=== PATIENT | male | born 1965 | race Caucasian/White ===

== ENCOUNTER 2018-06-29 11:42 | Emergency (ER) | payer MEDICAID ==
[~2018-06-29] VITALS: Ht 175.3 cm; Wt 93.2 kg
[~2018-06-29 11:42] MED LIST: CYCL-1 PO; HYDR-4353 PO; IBUP-1984 PO; OMEP40CA37 PO
[2018-06-29 11:49] VITALS: BP 132/82
[2018-06-29] MEDS ORDERED: CEPH500C5 PO (12:39)
== END 2018-06-29 13:10 | disposition home or self-care (01) ==
LOC: ER 11:43
DX: S60.454A Superficial foreign body of right ring finger, initial encounter (principal); K21.9 Gastro-esophageal reflux disease without esophagitis; G89.29 Other chronic pain; F12.90 Cannabis use, unspecified, uncomplicated; Z88.6 Allergy status to analgesic agent; Z79.2 Long term (current) use of antibiotics; Z79.899 Other long term (current) drug therapy; W45.8XXA Other foreign body or object entering through skin, initial encounter; Y93.89 Activity, other specified; Y92.89 Other specified places as the place of occurrence of the external cause; Y99.8 Other external cause status
CPT/HCPCS: 73140; 99284

== ENCOUNTER 2018-10-23 20:29 | Emergency (ER) | payer MEDICAID ==
[~2018-10-23] VITALS: Ht 175.3 cm; Wt 80.0 kg
[~2018-10-23 20:29] MED LIST changes: +CEPH500C5 PO
[2018-10-23 20:37] VITALS: BP 113/83
[2018-10-23] MEDS ORDERED: ACET-3067 PO (22:17)
[2018-10-23] MEDS ORDERED: acetaminophen w/codeine (30MG) #3 tablet PO ONE (22:20)
== END 2018-10-23 22:29 | disposition home or self-care (01) ==
LOC: ER 20:30
DX: S60.222A Contusion of left hand, initial encounter (principal); K21.9 Gastro-esophageal reflux disease without esophagitis; G89.29 Other chronic pain; F12.90 Cannabis use, unspecified, uncomplicated; Z88.6 Allergy status to analgesic agent; W20.8XXA Other cause of strike by thrown, projected or falling object, initial encounter; Y93.89 Activity, other specified; Y92.89 Other specified places as the place of occurrence of the external cause; Y99.8 Other external cause status
CPT/HCPCS: 73130; 99283

== ENCOUNTER 2020-09-07 15:41 | Inpatient (IN) | payer MEDICAID ==
[~2020-09-07] VITALS: Ht 177.8 cm; Wt 97.7 kg
[~2020-09-07 15:41] MED LIST changes: -CEPH500C5 PO; +OMEP40CA13 PO; -OMEP40CA37 PO
[2020-09-07 16:38] LABS: BASOPHILS # (AUTO) 0.1 X10'3 (0-0.2); BASOPHILS % (AUTO) 0.5 % (0-1); EOSINOPHILS # (AUTO) 0.2 X10'3 (0-0.9); EOSINOPHILS % (AUTO) 1.5 % (0-6); HEMATOCRIT 45.5 % (42.0-52.0); HEMOGLOBIN 15.3 g/dl (14.0-17.9); LYMPHOCYTES # (AUTO) 3.4 X10'3 (1.1-4.8); LYMPHOCYTES % (AUTO) 27.4 % (21-51); MEAN CORPUSCULAR HEMOGLOBIN 31.2 PG (27.0-31.0); MEAN CORPUSCULAR HGB CONC 33.7 g/dL (33.0-36.5); MEAN CORPUSCULAR VOLUME 92.7 FL (78-98); MONOCYTES # (AUTO) 0.9 X10'3 (0-0.9); MONOCYTES % (AUTO) 7.6 % (2-12); NEUTROPHILS # (AUTO) 7.7 X10'3 (1.8-7.7); PLATELET COUNT 240 X10'3 (140-440); RED BLOOD COUNT 4.91 X10'6 (4.70-6.10); RED CELL DISTRIBUTION WIDTH 13.2 % (11.5-14.5); WHITE BLOOD COUNT 12.3 X10'3 (4.5-11.0)
[2020-09-07 16:38] LABS: CLARITY,URINE CLEAR (Clear); COLOR,URINE YELLOW (Yellow); GLUCOSE, URINE NEGATIVE (Neg); KETONES,URINE 15 mg/dl (Neg); LEUKOCYTE ESTERASE ,URINE NEGATIVE (Neg); NITRITES, URINE NEGATIVE (Neg); OCCULT BLOOD,URINE NEGATIVE (Neg); PH,URINE 5.5 (4.8-8.0); PROTEIN,URINE NEGATIVE (Neg); UROBILINOGEN,URINE 0.2 E.U/dL (0.2-1.0)
[2020-09-07 16:40] LABS: UA COLLECTION TYPE NON-SPECIFIED
[2020-09-07 17:09] LABS: ALANINE AMINOTRANSFERASE 34 U/L (12-78); ALBUMIN 4.1 G/DL (3.4-5.0); ALBUMIN/GLOBULIN RATIO 1.1 (1.1-1.5); ALKALINE PHOSPHATASE 92 IU/L (46-116); ANION GAP 9 (8-16); ASPARTATE AMINO TRANSFERASE 18 U/L (10-37); BILIRUBIN,TOTAL 0.8 MG/DL (0.1-1.0); BLOOD UREA NITROGEN 11 MG/DL (7-18); BUN/CREATININE RATIO 12.2 (5.4-32.0); CALCIUM 9.9 MG/DL (8.5-10.1); CHLORIDE 104 MMOL/L (99-107); GLUCOSE 88 MG/DL (70-104); POTASSIUM 4.2 MMOL/L (3.5-5.1); SODIUM 140 MMOL/L (135-145); TOTAL CARBON DIOXIDE 26.6 MMOL/L (24-32); TOTAL PROTEIN 7.8 G/DL (6.4-8.2); eGFR 88 ML/MIN
[2020-09-07 17:17] LABS: LIPASE 1409 U/L (73-393)
--- NOTE | 2020-09-07 17:43 | NUR ---
updated primary rn elif
[2020-09-07] MEDS ORDERED: ondansetron/PF 4mg/2ml inj IV ONE (17:50)
[2020-09-07] MEDS ORDERED: normal saline 1000ML IV soln IVB ONE (17:50)
[2020-09-07] MEDS: morphine 4 MG/ML inj SYRINge IV PRN ×2 (17:59→18:47)
[2020-09-07] MEDS ORDERED: piperacillin/tazo 3.375gm/50ml 50 ML IV ONE (19:45)
[2020-09-07 20:04] LABS: C-REACTIVE PROTEIN 5.69 MG/DL (0.0-0.5)
[2020-09-07] MEDS ORDERED: morphine 2 MG/ML inj. syringe IV PRN (20:35)
[2020-09-07] MEDS ORDERED: potassium Cl 40MEQ/1/2NS 520ml 520 ML IV PRN ×2 (20:35)
[2020-09-07] MEDS ORDERED: mag hydrox/Alum hydrox/simeth 30ml oral suspension PO PRN (20:35)
[2020-09-07] MEDS ORDERED: IBUP-1985 PO (20:41)
[2020-09-07] MEDS: normal saline 1000ml 1,000 ML IV SCH (20:56)
[2020-09-07] MEDS: morphine 2 MG/ML inj. syringe IV PRN ×2 (21:28→23:21)
[2020-09-07] MEDS ORDERED: pantoprazole 40 MG vial IV ONE (21:40)
[2020-09-07 22:00] VITALS: BP 123/77
[2020-09-08] VITALS (18 sets, daily range): BP systolic 102–132; BP diastolic 57–85
[2020-09-08] MEDS: piperacillin/tazo 3.375gm/50ml 50 ML IV SCH ×3 (00:16→15:13)
[2020-09-08] MEDS: morphine 2 MG/ML inj. syringe IV PRN ×11 (01:27→23:49)
[2020-09-08] MEDS: ondansetron/PF 4mg/2ml inj IV PRN (05:26)
--- NOTE | 2020-09-08 06:03 | NUR ---
Problems reprioritized. Patient report given, questions answered & plan of care reviewed with MOY Bird.
--- NOTE | 2020-09-08 06:20 | NUR ---
Patient in room [facility]. I have received report from MOY Argueta and had the opportunity to ask questions and assume patient care.
[2020-09-08 06:22] LABS: BASOPHILS % (AUTO) 0.4 % (0-1); EOSINOPHILS # (AUTO) 0.2 X10'3 (0-0.9); EOSINOPHILS % (AUTO) 2.6 % (0-6); HEMATOCRIT 41.2 % (42.0-52.0); HEMOGLOBIN 14.1 g/dl (14.0-17.9); LYMPHOCYTES # (AUTO) 2.9 X10'3 (1.1-4.8); LYMPHOCYTES % (AUTO) 35.1 % (21-51); MEAN CORPUSCULAR HEMOGLOBIN 31.3 PG (27.0-31.0); MEAN CORPUSCULAR HGB CONC 34.2 g/dL (33.0-36.5); MEAN CORPUSCULAR VOLUME 91.7 FL (78-98); MEAN PLATELET VOLUME 8.3 FL (7.4-10.4); MONOCYTES # (AUTO) 0.6 X10'3 (0-0.9); MONOCYTES % (AUTO) 7.5 % (2-12); NEUTROPHILS # (AUTO) 4.4 X10'3 (1.8-7.7); NEUTROPHILS % (AUTO) 54.4 % (42-75); PLATELET COUNT 221 X10'3 (140-440); RED BLOOD COUNT 4.49 X10'6 (4.70-6.10); RED CELL DISTRIBUTION WIDTH 12.8 % (11.5-14.5); WHITE BLOOD COUNT 8.1 X10'3 (4.5-11.0)
[2020-09-08 06:36] LABS: ALANINE AMINOTRANSFERASE 31 U/L (12-78); ALBUMIN 3.4 G/DL (3.4-5.0); ALBUMIN/GLOBULIN RATIO 1.1 (1.1-1.5); ALKALINE PHOSPHATASE 78 IU/L (46-116); ANION GAP 7 (8-16); ASPARTATE AMINO TRANSFERASE 16 U/L (10-37); BILIRUBIN,TOTAL 0.9 MG/DL (0.1-1.0); BLOOD UREA NITROGEN 13 MG/DL (7-18); CALCIUM 8.6 MG/DL (8.5-10.1); CHLORIDE 106 MMOL/L (99-107); GLUCOSE 81 MG/DL (70-104); LIPASE 475 U/L (73-393); POTASSIUM 3.8 MMOL/L (3.5-5.1); SODIUM 141 MMOL/L (135-145); TOTAL CARBON DIOXIDE 28.3 MMOL/L (24-32); TOTAL PROTEIN 6.6 G/DL (6.4-8.2); TRIGLYCERIDES 68 MG/DL (20-135); eGFR 78 ML/MIN
[2020-09-08] MEDS ORDERED: BUPIVAcaine/PF 2.5mg/ml (0.25%) 10ml vial ONE (06:44)
[2020-09-08] MEDS ORDERED: ceFAZolin 1000mg inj ONE (06:44)
[2020-09-08] MEDS: normal saline 1000ml 1,000 ML IV SCH ×2 (07:19→15:13)
[2020-09-08] MEDS ORDERED: acetaminophen 325mg tablet PO PRN (07:40)
[2020-09-08] MEDS: acetaminophen 325mg tablet PO PRN ×2 (07:53→15:01)
[2020-09-08] MEDS: K and/or MAG REPLACEMENT MC SCH ×2 (08:00→19:17)
[2020-09-08] MEDS ORDERED: morphine 4 MG/ML inj SYRINge IV PRN (09:20)
[2020-09-08] MEDS ORDERED: ringers solution, lacted 1,000 ML IV SCH (09:20)
[2020-09-08] MEDS ORDERED: ondansetron/PF 4mg/2ml inj IV PRN ×2 (09:20→10:30)
[2020-09-08] MEDS ORDERED: morphine 2 MG/ML inj. syringe IV PRN (09:20)
[2020-09-08] MEDS ORDERED: meperidine/PF 25mg/ml syringe IV PRN ×3 (09:20)
[2020-09-08] MEDS ORDERED: proCHLORperazine 10 MG/2 ml inj IV PRN (09:20)
[2020-09-08] MEDS ORDERED: sevoflurane 250ml liquid IH ONE (09:25)
[2020-09-08] MEDS ORDERED: midazolam 2 mg/2 ml injection ONE (09:27)
[2020-09-08] MEDS ORDERED: fentaNYL/PF 50MCG/1 ML 2ML syringe ONE ×2 (09:28→09:38)
[2020-09-08] MEDS ORDERED: dexamethasone sod phosphate 4mg/ml inj. ONE (09:38)
[2020-09-08] MEDS ORDERED: ondansetron/PF 4mg/2ml inj ONE (09:38)
[2020-09-08] MEDS ORDERED: rocuronium 10mg/ml inj IV ONE (09:38)
[2020-09-08] MEDS ORDERED: LIDOcaine 2% (20mg/ml) 5ml vial ONE (09:38)
[2020-09-08] MEDS ORDERED: glycopyrrolate 0.2mg/ml inj ONE (09:38)
[2020-09-08] MEDS ORDERED: neostigmine methylsulfate 1 MG/ML 10ml vial ONE (09:38)
[2020-09-08] MEDS ORDERED: propofol inj 20 ML IV ONE (09:38)
[2020-09-08] MEDS ORDERED: pneumococcal 23-VAL P-sac vacc 25 mcg/0.5ml vial IMVAC ONE (10:00)
[2020-09-08] MEDS ORDERED: HYDROcodone/acetaminophen 10/325mg tab PO PRN (10:30)
--- NOTE | 2020-09-08 10:40 | NUR ---
Received from OR via BED, accompanied by Anesthesiologist PARAS and report given by Anesthesiolgist. PT SLEEPY, OXYGENATING WELL ON 10 LPM O2 VIA MASK, NO RESP DISTRESS NOTED. DENIES NAUSEA AT THIS TIME, ONLY C/O MILD INCISIONAL PAIN. 2 LARGE BANDAIDS TO ABD TROCAR SITES, CDI. MATTHIAS DRAIN TO R SIDE OF ABD WITH SM AMOUNT OF DARK OUTPUT. DSG TO MATTHIAS SITE CDI. SCDS ON, VSS. WILL CONTINUE TO MONITOR.
--- NOTE | 2020-09-08 10:42 | NUR ---
Malnutrition consult: Pt reports 2-13 lb wt loss with decreased appetite per malnutrition risk screen with RN. Pt admit with appendicitis, currently NPO and in OR. Per H&P pt with c/o abdominal pain onset two days ago though food does not trigger pain. Current documented wt is stable with documented wt hx. Pt with no documented decrease in muscle strength or edema. Pt appears WDWN per ED report. Pt currently lacks a minimum of two criteria for malnutrition. Will continue to follow. Addendum: 09/08/20 at [address] Amended: Links added.
--- NOTE | 2020-09-08 11:20 | NUR ---
Report received from STRETCHER LEVELER OPERATOR HELPERRadha
--- NOTE | 2020-09-08 11:30 | NUR ---
Report called to receiving nurse. Transferred via BED Belongings IN PT ROOM. PT TOLERATING PO FLUIDS WELL, NO NAUSEA. C/O MOD/SEVERE INCISIONAL PAIN. MEDICATED WITH 25 MG IV DEMEROL. PT TRANSFERRED TO [facility] IN STABLE CONDITION, RECEIVING RN WILL ADDRESS PAIN MEDS UPON ARRIVAL TO FLOOR. Special Issues communicated to receiving nurse.
[2020-09-08] MEDS ORDERED: ketorolac trometh. 30mg/ml inj. IM PRN (15:30)
[2020-09-08] MEDS: HYDROcodone/acetaminophen 10/325mg tab PO PRN ×2 (15:39→20:19)
[2020-09-08] MEDS: ketorolac trometh. 30mg/ml inj. IV PRN ×2 (15:46→22:09)
[2020-09-08] MEDS ORDERED: LORazepam 2 mg/ml vial IV PRN (17:05)
[2020-09-08] MEDS ORDERED: LORazepam 1 MG tablet PO PRN (17:05)
--- NOTE | 2020-09-08 18:35 | NUR ---
Problems reprioritized. Patient report given, questions answered & plan of care reviewed with MOY Knight.
--- NOTE | 2020-09-08 18:52 | NUR ---
Patient in room [facility]. I have received report from Marge WINTER and had the opportunity to ask questions and assume patient care.
[2020-09-08] MEDS: lactobacillus rhamnosus 10,000 MMU CELLS/CAPSULE PO SCH (19:17)
[2020-09-09] MEDS: piperacillin/tazo 3.375gm/50ml 50 ML IV SCH ×4 (00:03→23:02)
[2020-09-09] MEDS: normal saline 1000ml 1,000 ML IV SCH ×3 (00:04→20:11)
[2020-09-09] MEDS: ondansetron/PF 4mg/2ml inj IV PRN (00:18)
[2020-09-09] MEDS: HYDROcodone/acetaminophen 10/325mg tab PO PRN ×4 (00:23→20:10)
--- NOTE | 2020-09-09 00:30 | NUR ---
Called MD due to pain being out of control. Received order for CONTENT CHECKER pump
[2020-09-09] MEDS ORDERED: morphine/NS 5 mg/ml CADD 50 ML IV SCH ×2 (00:40→00:45)
--- NOTE | 2020-09-09 00:40 | NUR ---
Patient feeling sick and hanging over bed rail. Gave patient a tissue and he was wiping his forehead with it and I was sitting there with the patient holding a cup of water in my hand. Patient started yelling at me that I wouldn't wipe his nose and that I was worthless. Patient started gagging and I suggested to sit up in bed so that he would not choke. Patient yelled at me, "Just fucking leave your worthless." I sat the water down and went to go get someone else due to patient being mad at me. Patient sitting in bed with his head on a pillow on the rail. I came out to the charge nurse to let her know the conversation and got an aide to go in to sit with the patient. The patient started yelling for help. Patient started saying that I had left him strangling in his bed. Aide at bedside and charge nurse in talking with patient.
[2020-09-09] MEDS ORDERED: CADD PCA waste documentation MC SCH (00:45)
[2020-09-09] MEDS ORDERED: naloxone 0.4 mg/ml inj IV PRN ×2 (00:45)
[2020-09-09] MEDS ORDERED: CADD PCA waste documentation MC PRN (00:45)
--- NOTE | 2020-09-09 00:50 | NUR ---
PATIENT AGITATED/ANGRY WITH HIS CURRENT RN. PT STATES THAT SHE LEFT HIM "TO STRANGLE TO " WITH HIS HEAD OVER THE BED RAIL. PT STATES THAT HE ASKED THE NURSE TO WIPE HIS NOSE FOR HIM AND SHE "REFUSED" TO DO IT, HE THEN TOLD THE NURSE TO "BACK AWAY." PT STATES THAT THE NURSE STOOD IN THE DOORWAY AND WATCHED HIM "STRANGLE ON THE SIDE OF BED, WHILE HE STRUGGLED TO BREATHE." UPON ENTERING THE ROOM, PT WAS FOUND SITTING UP IN THE BED WITH NO RESPIRATORY DISTRESS. PT ABLE TO REPOSITION HIMSELF INDEPENDENTLY. PT C/O 06/09 ABD PAIN, AWAITING MORPHINE PATTERN MAKER PROGRAMER FROM PHARMACY AT THIS TIME. PER RN, PT WAS LEANING OVER THE BED RAIL WITH HIS HEAD RESTING ON A PILLOW, AND WAS NOT IN ANY RESPIRATORY DISTRESS. PT ASSIGNED A NEW RN AGUSTIN AT THIS TIME.
--- NOTE | 2020-09-09 01:20 | NUR ---
Gave report to Sondra WINTER
--- NOTE | 2020-09-09 01:30 | NUR ---
Patient in room [facility]. I have received report from MOY Knight and had the opportunity to ask questions and assume patient care. Waiting for Morphine cadd from pharmacy. Addendum: 09/09/20 at 0139 by Fazal Burns RN Amended: Links added.
[2020-09-09] MEDS: MORPHINE CADD 5 MG/ML 50ML IV SCH ×5 (01:49→09:00)
--- NOTE | 2020-09-09 02:00 | NUR ---
Pt us upset , states RN let him "choke on bed rail". Allowed pt to verbalize feelings, cool compress given, morphine cad started explained use to pt. face washed, pillow cases changed, poc with pillows. Addendum: 09/09/20 at 0254 by Fazal Burns RN Amended: Links added.
--- NOTE | 2020-09-09 02:55 | NUR ---
sitting up in bed jeni chicken broth, no nausea at this time. Pt pleasant and calm. States pain is "better" was a "20" out of 10, but now down to a 7 or 8 and getting better, but still painful. warm compress and pillows given to help position self. MRI screening form complete. Addendum: 09/09/20 at 0257 by Fazal Burns RN Amended: Links added.
--- NOTE | 2020-09-09 03:16 | NUR ---
Pt has states he does not drink alcohol. Pt states he is upset, MD states his pancreatitis was from drinking. Wanted to make sure it was documented on his record that he does not drink alcohol. Addendum: 09/09/20 at 0317 by Fazal Burns RN Amended: Links added.
[2020-09-09] MEDS: ketorolac trometh. 30mg/ml inj. IV PRN ×4 (03:57→22:59)
--- NOTE | 2020-09-09 06:05 | NUR ---
Patient in room [facility]. I have received report from MOY Amaro and had the opportunity to ask questions and assume patient care.
--- NOTE | 2020-09-09 06:10 | NUR ---
Problems reprioritized. Patient report given, questions answered & plan of care reviewed with MOY Bird. Addendum: 09/09/20 at 0611 by Fazal Burns RN Amended: Links added.
[2020-09-09 06:30] VITALS: BP 125/82
[2020-09-09 07:16] LABS: BASOPHILS % (AUTO) 0.2 % (0-1); EOSINOPHILS % (AUTO) 0.1 % (0-6); HEMATOCRIT 36.2 % (42.0-52.0); HEMOGLOBIN 12.4 g/dl (14.0-17.9); LYMPHOCYTES % (AUTO) 12.5 % (21-51); MEAN CORPUSCULAR HEMOGLOBIN 31.6 PG (27.0-31.0); MEAN CORPUSCULAR HGB CONC 34.2 g/dL (33.0-36.5); MEAN CORPUSCULAR VOLUME 92.2 FL (78-98); MONOCYTES # (AUTO) 1.2 X10'3 (0-0.9); MONOCYTES % (AUTO) 7.5 % (2-12); NEUTROPHILS # (AUTO) 12.7 X10'3 (1.8-7.7); NEUTROPHILS % (AUTO) 79.7 % (42-75); PLATELET COUNT 218 X10'3 (140-440); RED BLOOD COUNT 3.93 X10'6 (4.70-6.10); RED CELL DISTRIBUTION WIDTH 12.7 % (11.5-14.5); WHITE BLOOD COUNT 15.9 X10'3 (4.5-11.0)
[2020-09-09] MEDS ORDERED: sennosides/docusate sodium tablet PO SCH (08:00)
[2020-09-09] MEDS ORDERED: docusate sod 100mg capsule PO SCH (08:00)
[2020-09-09 08:13] LABS: ALANINE AMINOTRANSFERASE 24 U/L (12-78); ALKALINE PHOSPHATASE 65 IU/L (46-116); ANION GAP 10 (8-16); ASPARTATE AMINO TRANSFERASE 15 U/L (10-37); BILIRUBIN,TOTAL 0.6 MG/DL (0.1-1.0); BLOOD UREA NITROGEN 15 MG/DL (7-18); BUN/CREATININE RATIO 15.6 (5.4-32.0); CALCIUM 8.3 MG/DL (8.5-10.1); CHLORIDE 107 MMOL/L (99-107); CREATININE 0.96 MG/DL (0.60-1.10); GLUCOSE 104 MG/DL (70-104); LIPASE 92 U/L (73-393); SODIUM 142 MMOL/L (135-145); TOTAL CARBON DIOXIDE 25.3 MMOL/L (24-32); TOTAL PROTEIN 5.9 G/DL (6.4-8.2); eGFR 82 ML/MIN
[2020-09-09] MEDS: K and/or MAG REPLACEMENT MC SCH ×2 (09:14→19:29)
[2020-09-09] MEDS: lactobacillus rhamnosus 10,000 MMU CELLS/CAPSULE PO SCH ×2 (09:32→19:28)
[2020-09-09 11:00] VITALS: BP 128/72
[2020-09-09] MEDS: morphine 2 MG/ML inj. syringe IV PRN ×2 (17:52→22:11)
--- NOTE | 2020-09-09 18:10 | NUR ---
Problems reprioritized. Patient report given, questions answered & plan of care reviewed with MOY Castro.
--- NOTE | 2020-09-09 18:45 | NUR ---
Patient in room [facility]. I have received report from Marge WINTER and had the opportunity to ask questions and assume patient care.
[2020-09-09] MEDS: enoxaparin 40mg/0.4ml syringe SUBCUT SCH (19:29)
[2020-09-09 20:00] VITALS: BP_SYST 116; BP_SYST 143; BP_DIAS 61; BP_DIAS 91
[2020-09-10] VITALS: BP_SYST 119; BP_SYST 120; BP_DIAS 69; BP_DIAS 72
[2020-09-10] MEDS: HYDROcodone/acetaminophen 10/325mg tab PO PRN ×6 (01:02→23:49)
[2020-09-10] MEDS: morphine 2 MG/ML inj. syringe IV PRN ×3 (02:33→16:39)
[2020-09-10] MEDS: normal saline 1000ml 1,000 ML IV SCH ×2 (05:07→17:46)
[2020-09-10] MEDS: ketorolac trometh. 30mg/ml inj. IV PRN ×3 (05:51→19:24)
--- NOTE | 2020-09-10 06:21 | NUR ---
Problems reprioritized. Patient report given, questions answered & plan of care reviewed with Sahara WINTER.
[2020-09-10 06:48] LABS: BASOPHILS % (AUTO) 0.4 % (0-1); EOSINOPHILS # (AUTO) 0.2 X10'3 (0-0.9); EOSINOPHILS % (AUTO) 2.2 % (0-6); HEMATOCRIT 34.8 % (42.0-52.0); HEMOGLOBIN 12.1 g/dl (14.0-17.9); LYMPHOCYTES # (AUTO) 3.5 X10'3 (1.1-4.8); LYMPHOCYTES % (AUTO) 38.4 % (21-51); MEAN CORPUSCULAR HEMOGLOBIN 32.1 PG (27.0-31.0); MEAN CORPUSCULAR HGB CONC 34.8 g/dL (33.0-36.5); MEAN CORPUSCULAR VOLUME 92.3 FL (78-98); MEAN PLATELET VOLUME 7.9 FL (7.4-10.4); MONOCYTES # (AUTO) 0.6 X10'3 (0-0.9); MONOCYTES % (AUTO) 6.4 % (2-12); NEUTROPHILS # (AUTO) 4.9 X10'3 (1.8-7.7); NEUTROPHILS % (AUTO) 52.6 % (42-75); PLATELET COUNT 208 X10'3 (140-440); RED BLOOD COUNT 3.77 X10'6 (4.70-6.10); RED CELL DISTRIBUTION WIDTH 12.9 % (11.5-14.5); WHITE BLOOD COUNT 9.2 X10'3 (4.5-11.0)
[2020-09-10 06:57] LABS: ALANINE AMINOTRANSFERASE 21 U/L (12-78); ALBUMIN 2.8 G/DL (3.4-5.0); ALKALINE PHOSPHATASE 56 IU/L (46-116); ANION GAP 7 (8-16); ASPARTATE AMINO TRANSFERASE 14 U/L (10-37); BILIRUBIN,TOTAL 0.5 MG/DL (0.1-1.0); BLOOD UREA NITROGEN 12 MG/DL (7-18); BUN/CREATININE RATIO 12.1 (5.4-32.0); CALCIUM 7.9 MG/DL (8.5-10.1); CHLORIDE 108 MMOL/L (99-107); CREATININE 0.99 MG/DL (0.60-1.10); GLUCOSE 79 MG/DL (70-104); LIPASE 91 U/L (73-393); POTASSIUM 3.7 MMOL/L (3.5-5.1); SODIUM 142 MMOL/L (135-145); TOTAL CARBON DIOXIDE 27.1 MMOL/L (24-32); TOTAL PROTEIN 5.6 G/DL (6.4-8.2); eGFR 79 ML/MIN
[2020-09-10 07:30] VITALS: BP 132/90
[2020-09-10] MEDS: lactobacillus rhamnosus 10,000 MMU CELLS/CAPSULE PO SCH ×2 (07:38→19:35)
[2020-09-10] MEDS: piperacillin/tazo 3.375gm/50ml 50 ML IV SCH ×3 (07:38→23:50)
[2020-09-10] MEDS: K and/or MAG REPLACEMENT MC SCH ×2 (07:42→20:00)
[2020-09-10] MEDS ORDERED: AMOX-422 PO (11:40)
[2020-09-10] MEDS: ondansetron/PF 4mg/2ml inj IV PRN (13:00)
[2020-09-10 13:14] VITALS: BP 121/80
--- NOTE | 2020-09-10 14:00 | NUR ---
Attempted phone call to Dr. Wild regarding MATTHIAS drain/pain medication. No answer, No call back.
[2020-09-10] MEDS: acetaminophen 325mg tablet PO PRN (16:43)
--- NOTE | 2020-09-10 18:11 | NUR ---
Problems reprioritized. Patient report given, questions answered & plan of care reviewed with Jenn RN.
[2020-09-10 19:30] VITALS: BP 128/86
[2020-09-10] MEDS: enoxaparin 40mg/0.4ml syringe SUBCUT SCH (19:36)
[2020-09-10 23:30] VITALS: BP 133/86
[2020-09-11] MEDS: HYDROcodone/acetaminophen 10/325mg tab PO PRN ×3 (03:49→13:41)
[2020-09-11] MEDS: normal saline 1000ml 1,000 ML IV SCH (04:35)
[2020-09-11] MEDS: ketorolac trometh. 30mg/ml inj. IV PRN (05:15)
--- NOTE | 2020-09-11 06:30 | NUR ---
Patient in room [facility]. I have received report from Pat RN and had the opportunity to ask questions and assume patient care.
[2020-09-11 06:36] LABS: BASOPHILS % (AUTO) 0.6 % (0-1); EOSINOPHILS # (AUTO) 0.3 X10'3 (0-0.9); EOSINOPHILS % (AUTO) 4.3 % (0-6); HEMATOCRIT 35.8 % (42.0-52.0); HEMOGLOBIN 12.2 g/dl (14.0-17.9); LYMPHOCYTES # (AUTO) 3.2 X10'3 (1.1-4.8); LYMPHOCYTES % (AUTO) 41.6 % (21-51); MEAN CORPUSCULAR HEMOGLOBIN 31.6 PG (27.0-31.0); MEAN CORPUSCULAR HGB CONC 34.2 g/dL (33.0-36.5); MEAN CORPUSCULAR VOLUME 92.6 FL (78-98); MEAN PLATELET VOLUME 7.9 FL (7.4-10.4); MONOCYTES # (AUTO) 0.5 X10'3 (0-0.9); MONOCYTES % (AUTO) 6.7 % (2-12); NEUTROPHILS # (AUTO) 3.6 X10'3 (1.8-7.7); NEUTROPHILS % (AUTO) 46.8 % (42-75); PLATELET COUNT 215 X10'3 (140-440); RED BLOOD COUNT 3.87 X10'6 (4.70-6.10); RED CELL DISTRIBUTION WIDTH 12.8 % (11.5-14.5); WHITE BLOOD COUNT 7.6 X10'3 (4.5-11.0)
[2020-09-11 06:42] LABS: ALANINE AMINOTRANSFERASE 27 U/L (12-78); ALBUMIN 2.9 G/DL (3.4-5.0); ALKALINE PHOSPHATASE 56 IU/L (46-116); ANION GAP 7 (8-16); ASPARTATE AMINO TRANSFERASE 25 U/L (10-37); BILIRUBIN,TOTAL 0.4 MG/DL (0.1-1.0); BLOOD UREA NITROGEN 11 MG/DL (7-18); BUN/CREATININE RATIO 12.9 (5.4-32.0); CALCIUM 8.5 MG/DL (8.5-10.1); CHLORIDE 108 MMOL/L (99-107); CREATININE 0.85 MG/DL (0.60-1.10); GLUCOSE 84 MG/DL (70-104); LIPASE 80 U/L (73-393); POTASSIUM 3.8 MMOL/L (3.5-5.1); SODIUM 144 MMOL/L (135-145); TOTAL CARBON DIOXIDE 28.6 MMOL/L (24-32); TOTAL PROTEIN 5.8 G/DL (6.4-8.2); eGFR > 90 ML/MIN
[2020-09-11 07:00] VITALS: BP 126/84
[2020-09-11] MEDS: K and/or MAG REPLACEMENT MC SCH (08:00)
[2020-09-11] MEDS: lactobacillus rhamnosus 10,000 MMU CELLS/CAPSULE PO SCH (09:45)
[2020-09-11] MEDS: piperacillin/tazo 3.375gm/50ml 50 ML IV SCH (09:46)
[2020-09-11 11:00] VITALS: BP 130/74
--- NOTE | 2020-09-11 16:55 | NUR ---
Patient left after being educated on discharge instruction new medications and dosing regime and finally the follow up instructions. Patient IV taken out at time of discharge and canula whole and intact upon assessing. IV site minimal bleeding at site. patient left in wheelchair and transported home via private vehicle.
== END 2020-09-11 16:56 | disposition home or self-care (01) | DRG 234 ==
LOC: ER 15:42 → ED HOLD 20:33 → SUR 3N 21:40 → UNDODISIN 09-11 16:02 → SUR 3N 09-11 16:23
PROVIDERS: ADMIT Internal Medicine; ATTEND Internal Medicine
PROC: 0DTJ4ZZ Resection of Appendix, Percutaneous Endoscopic Approach (ICD-10-PCS; principal; 2020-09-08 09:25)
DX: K35.80 Unspecified acute appendicitis (principal); F12.90 Cannabis use, unspecified, uncomplicated; I10 Essential (primary) hypertension; K85.90 Acute pancreatitis without necrosis or infection, unspecified; Z82.49 Family history of ischemic heart disease and other diseases of the circulatory system; Z83.3 Family history of diabetes mellitus; Z20.822 Contact with and (suspected) exposure to COVID-19
CPT/HCPCS: 36415; 74176; 74181; 80053; 81003; 82948; 83690; 84478; 85025; 86140; 87081; 87635; 93005; 96365; 96375; 99285; A4215; A4314; A4618; A6402; A7000; C9113; G0378; J0690; J1100; J1650; J1885; J2001; J2175; J2250; J2270; J2405; J2543; J2704; J2710; J3010; J3490; J7030; J7120

== ENCOUNTER 2021-01-07 12:25 | Emergency (ER) | payer MEDICAID ==
[~2021-01-07] VITALS: Ht 175.3 cm; Wt 92.4 kg
[~2021-01-07 12:25] MED LIST changes: -IBUP-1984 PO; +IBUP-1985 PO
[2021-01-07 12:48] VITALS: BP 144/94
[2021-01-07] MEDS ORDERED: LIDOcaine 1% W/epiNEPHrine 1:200,000 10ml vial IJ ONE (14:20)
[2021-01-07] MEDS ORDERED: bacitracin 15gm ointment TP ONE (14:20)
[2021-01-07] MEDS ORDERED: TETanus/Pertussis (Acell)/Diphther VAC/PF (Tdap-Adult) 0.5ml syringe IMVAC ONE (14:20)
[2021-01-07] MEDS ORDERED: CEPH250T PO (14:56)
[2021-01-07] MEDS ORDERED: ONDA4TAB6 PO (15:06)
== END 2021-01-07 15:09 | disposition home or self-care (01) ==
LOC: ER 12:25
DX: S60.457A Superficial foreign body of left little finger, initial encounter (principal); K21.9 Gastro-esophageal reflux disease without esophagitis; G89.29 Other chronic pain; F12.90 Cannabis use, unspecified, uncomplicated; Z79.899 Other long term (current) drug therapy; W45.8XXA Other foreign body or object entering through skin, initial encounter; Y93.89 Activity, other specified; Y92.89 Other specified places as the place of occurrence of the external cause; Y99.8 Other external cause status
CPT/HCPCS: 73140; 90471; 90715; 99284

== ENCOUNTER 2022-06-27 18:28 | Emergency (ER) | payer MEDICAID, OTHER ==
[~2022-06-27] VITALS: Ht 177.8 cm; Wt 95.0 kg
[~2022-06-27 18:28] MED LIST changes: -OMEP40CA13 PO; +OMEP40CA21 PO; +ONDA4TAB6 PO
--- NOTE | 2022-06-27 20:55 | NUR ---
PT TO CT.
[2022-06-27] MEDS ORDERED: ketorolac tromethamine 15mg/ml inj. IM ONE (21:10)
--- NOTE | 2022-06-27 21:21 | NUR ---
PT RETURN FROM CT.
[2022-06-27] MEDS ORDERED: CYCL-1 PO (21:54)
[2022-06-27 22:03] VITALS: BP 142/94
== END 2022-06-27 22:12 | disposition home or self-care (01) ==
LOC: ER 18:29
DX: M25.512 Pain in left shoulder (principal); M54.59 Other low back pain; K21.9 Gastro-esophageal reflux disease without esophagitis; F12.10 Cannabis abuse, uncomplicated; Z88.6 Allergy status to analgesic agent; Z79.899 Other long term (current) drug therapy; V87.7XXA Person injured in collision between other specified motor vehicles (traffic), initial encounter; Y93.89 Activity, other specified; Y92.89 Other specified places as the place of occurrence of the external cause; Y99.8 Other external cause status
CPT/HCPCS: 70450; 72125; 72128; 72131; 96372; 99284; J1885